=== PATIENT | male | born 1965 | race Caucasian/White ===

== ENCOUNTER 2018-06-26 12:17 | Emergency (ER) | payer MEDICAID ==
[~2018-06-26] VITALS: Ht 167.6 cm; Wt 105.3 kg
[2018-06-26 12:21] VITALS: Ht 167.6 cm; Wt 105.3 kg
[2018-06-26 14:46] LABS: microscopic required? YES; urine erythrocyte TRACE (NEGATIVE)
[2018-06-26 16:15] VITALS: BP 140/89
== END 2018-06-26 16:15 | disposition home or self-care (01) ==
LOC: ED 12:17
PROVIDERS: Emergency Medicine
DX: M43.06 Spondylolysis, lumbar region (principal); I10 Essential (primary) hypertension; E66.01 Morbid (severe) obesity due to excess calories; Z68.37 Body mass index [BMI] 37.0-37.9, adult; Z98.890 Other specified postprocedural states
CPT/HCPCS: J1100; J1885